=== PATIENT | female | born 1995 | race Two or more races ===

== ENCOUNTER 2025-04-02 14:45 | Inpatient (IN) | payer OTHER ==
[~2025-04-02] VITALS: Ht 162.6 cm; Wt 76.7 kg
[2025-04-02 16:40] LABS: HEMATOCRIT 35.1 % (36.0-45.00); HEMOGLOBIN 11.3 g/dL (12.0-15.00); MEAN CELL VOLUME 85.8 fL (80.00-100.00); MEAN CORPUSCULAR HEMOGLOBIN 27.7 pg (27.00-32.0); MEAN CORPUSCULAR HGB CONC 32.3 g/dl (32.0-36.0); PLATELET COUNT 275 K/uL (150-450); RED BLOOD COUNT 4.09 M/uL (4.00-6.00); RED CELL DISTRIBUTION WIDTH 13.9 % (11.5-14.5)
[2025-04-02 16:59] LABS: INR 0.94; PARTIAL THROMBOPLASTIN TIME 25.9 SECONDS (22.0-34.0); PROTHROMBIN TIME 10.3 SECONDS (9.0-11.5)
[2025-04-02 17:04] LABS: ALBUMIN 2.9 gm/dL (3.4-5.0); BILIRUBIN TOTAL 0.69 mg/dL (0.3-1.2); CALCIUM 8.5 mg/dL (8.5-10.1); CREATININE SERUM 0.58 mg/dL (0.55-1.02); GFR 122.06; GLOBULINA 4.4 G/DL (2.4-3.5); POTASSIUM 3.83 mEq/L (3.5-5.1); TOTAL PROTEIN 7.3 gm/dL (6.4-8.2)
[2025-04-14] VITALS (9 sets, daily range): BP systolic 113–130; BP diastolic 71–82
[2025-04-14] MEDS ORDERED: RINGERS SOLUTION,LACTATED 1,000 ML IV SCH (09:15)
[2025-04-14] MEDS ORDERED: PRENATA CHEWAB1 EACH PO (09:39)
[2025-04-14] MEDS ORDERED: OXYTOCIN 500 ML IV SCH (10:15)
[2025-04-14 11:39] LABS: PH,URINE 6.5 (5.0-8.0); URINE APPEARANCE Clear; URINE BILIRRUBIN Negative (NEGATIVE); URINE BLOOD Trace; URINE COLOR Yellow; URINE GLUCOSE Negative (NEGATIVE); URINE KETONE Negative (NEGATIVE); URINE LEUKOCYTE Small; URINE NITRATE Negative; URINE PROTEIN Negative (NEGATIVE); URINE UROBILINOGEN 0.2 E.U./dl
[2025-04-14 11:44] LABS: URINE BACTERIA 307.1 uL (0.0-1933); URINE EPITHELIAL CELLS 16.2 uL (0.0-38.8); URINE WBC 22.6 uL (0.0-23.2)
[2025-04-14 11:54] LABS: URINE CAST 0.29 uL (0.0-1.40); URINE RBC 0.4 uL (0.0-20.8)
[2025-04-14] MEDS ORDERED: OXYTOCIN 20 UNITS/1000ML RL PIGGYBAG IV ONE (13:15)
[2025-04-14] MEDS ORDERED: LIDOCAINE HCL 1% 10ML VIAL ONE (13:15)
[2025-04-14] MEDS ORDERED: CHLORHEXIDINE GLUCONATE 120 ML BOTTLE TOP ONE ×2 (13:15→13:30)
[2025-04-14] MEDS ORDERED: ERYTHROMYCIN BASE OPHT 1GM EACH TUBE OP ONE ×2 (13:15→13:40)
[2025-04-14] MEDS ORDERED: LIDOCAINE HCL 1% 10ML VIAL IJ ONE (13:50)
[2025-04-14] MEDS ORDERED: OXYTOCIN 1,000 ML IV SCH (14:30)
[2025-04-14] MEDS ORDERED: ACETAMINOPHEN 500 MG GEL..CAP PO PRN (14:30)
[2025-04-14 19:16] LABS: BASO % 0.2 % (0.1-1.2); EOS % 0.3 % (0.7-7.0); HEMATOCRIT 31.5 % (34.1-44.9); HEMOGLOBIN 10.6 g/dL (11.2-15.7); LYMPH % 6.7 % (19.3-53.1); MEAN CORPUSCULAR HEMOGLOBIN 27.1 pg (25.6-32.2); MONO % 6.5 % (4.7-12.5); NEUT % 85.7 % (34.0-71.1); PLATELET COUNT 251 K/uL (163-369); RED BLOOD COUNT 3.77 M/uL (3.93-5.22)
[2025-04-14 19:17] LABS: EOS # 0.05 (0.04-0.54); MONO # 1.26 (0.24-0.82); NEUT # 16.73 (1.56-6.13)
[2025-04-15 00:35] VITALS: BP 109/61
[2025-04-15] MEDS ORDERED: PNV,CALCIUM 72/IRON/FOLIC ACID 1 TAB TABLET PO SCH (09:00)
[2025-04-15 09:14] VITALS: BP 109/72; O2SAT 99
[2025-04-15 16:02] VITALS: BP 110/74
[2025-04-16] VITALS: BP 105/69
[2025-04-16 09:02] VITALS: BP 99/62; O2SAT 99
[2025-04-16 16:02] VITALS: BP 115/81
== END 2025-04-16 16:11 | disposition home or self-care (01) | DRG 807 ==
LOC: OB/GYN 04-10 14:45 → LDR 04-14 07:26 → OB/GYN 04-14 14:18
PROVIDERS: Student in an Organized Health Care Education/Training Program; ADMIT Obstetrics & Gynecology; ATTEND Obstetrics & Gynecology
PROC: 10E0XZZ Delivery of Products of Conception, External Approach (ICD-10-PCS; principal; 2025-04-14)
PROC: 0KQM0ZZ Repair Perineum Muscle, Open Approach (ICD-10-PCS; 2025-04-14)
PROC: 4A1HXCZ Monitoring of Products of Conception, Cardiac Rate, External Approach (ICD-10-PCS; 2025-04-14)
DX: O70.1 Second degree perineal laceration during delivery (principal); Z37.0 Single live birth; Z3A.40 40 weeks gestation of pregnancy